=== PATIENT | male | born 2005 | race Caucasian/White ===

== ENCOUNTER 2024-01-27 04:17 | Emergency (ER) | payer OTHER, SELFPAY ==
--- NOTE | ~2024-01-27 | XR_ITS ---
XR wrist RT min 3V 01/27/2024 05:12 INDICATION: Right wrist pain. PROCEDURE: 3 views right wrist COMPARISON: No prior studies for comparison. FINDINGS: Fracture, dislocation or subluxation is not identified. The soft tissues appear within norm al limits. No foreign bodies are identified. IMPRESSION: 1: NO ACUTE BONE OR JOINT ABNORMALITY IDENTIFIED. Reviewed, dictated and finalized at location B.
--- NOTE | ~2024-01-27 | XR_ITS ---
XR tibia fibula RT 2V 01/27/2024 05:12 INDICATION: Right leg pain PROCEDURE: 2 views right tibia/fibular COMPARISON: No prior studies for comparison. FINDINGS: Fracture, dislocation or subluxation is not identified. The soft tissues appear within norm al limits. No foreign bodies are identified. IMPRESSION: 1: NO ACUTE BONE OR JOINT ABNORMALITY IDENTIFIED. Reviewed, dictated and finalized at location B.
--- NOTE | ~2024-01-27 | XR_ITS ---
XR ankle RT min 3V 01/27/2024 05:12 INDICATION: Right ankle pain PROCEDURE: 3 views right ankle COMPARISON: No prior studies for comparison. FINDINGS: Fracture, dislocation or subluxation is not identified. Ankle mortise intact. The soft tiss ues appear within normal limits. No foreign bodies are identified. IMPRESSION: 1: NO ACUTE BONE OR JOINT ABNORMALITY IDENTIFIED. Reviewed, dictated and finalized at location B.
[2024-01-27 04:21] VITALS: BP 129/80; PULSE 94; RESP 20; TEMP 36.3; O2SAT 100
[2024-01-27 04:47] VITALS: BP 119/84; PULSE 86; RESP 14; TEMP 36.6; O2SAT 100
[2024-01-27] MEDS: IBUPROFEN 600 MG TABLET PO (06:13)
[2024-01-27] MEDS: ACETAMINOPHEN 500 MG TABLET 1000 MG PO (06:14)
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
[2024-01-27 07:09] VITALS: BP 119/75; PULSE 67; RESP 18; TEMP 36.4; O2SAT 100
== END 2024-01-27 07:10 | disposition home or self-care (01) ==
PROVIDERS: Emergency Provider Student in an Organized Health Care Education/Training Program
DX: S80.11XA Contusion of right lower leg, initial encounter (principal); V40.0XXA Car driver injured in collision with pedestrian or animal in nontraffic accident, initial encounter
CPT/HCPCS: 73110; 73590; 73610; 99284; A9270

== ENCOUNTER 2025-04-01 11:54 | Emergency (ER) | payer OTHER, SELFPAY ==
[2025-04-01 12:00] VITALS: BP 123/85; PULSE 96; RESP 18; TEMP 36.6; O2SAT 100
--- NOTE | 2025-04-01 12:09 | ED_ITS ---
HPI - URI/Sore Throat General Chief Complaint: Upper Respiratory Infection Stated Complaint: Sore Throat Time Seen by Provider: 04/01/25 12:00 Source: patient and RN notes reviewed Mode of arrival: ambulatory Limitations: no limitations History of Present Illness HPI Narrative: 20-year-old male presents to the [facility] complaining of sore throat for 2 weeks. Patient reports mild congestion that is intermittent. Patient reports pain with swelling. Patient reports some body aches and chills. Has any fevers, nausea vomiting, diarrhea, difficulty clearing secretions, wheezing, difficulty breathing, dysphagia, or any other symptoms. Patient has not tried any [id number] help with symptoms. Denies any significant past medical history. Patient says symptoms are not improving. Related Data Allergies Allergy/AdvReac Type Severity Reaction Status Date / Time No Known Allergies Allergy Mild Verified 04/01/25 12:00 Review of Systems Review of Systems: CONSTITUTIONAL: Denies fever, or sweats. Positive for body aches and chills EYES: Denies visual changes, redness, or discharge. ENT: Denies rhinorrhea, congestion, or otalgia. Positive for sore throat CARDIOVASCULAR: Denies chest pain, palpitations, or edema. RESPIRATORY: Denies cough or dyspnea. GASTROINTESTINAL: Denies abdominal pain, nausea, vomiting, or diarrhea. GENITOURINARY: Denies dysuria or hematuria. SKIN: Denies rash or itching. MUSCULOSKELETAL: Denies back pain, joint pain, or myalgia. NEUROLOGIC: Denies headache, numbness, or weakness. PSYCHIATRIC: Denies anxiety or depression. All other systems reviewed are negative, except as documented in HPI. PMFSH Comments At the time of my signature, I reviewed and agree with the nursing past medical, surgical, social, and family history. There is no relevant family history pertinent to the patient complaint. Exam Narrative: GENERAL: This is a well-nourished, well-developed adult, in no apparent distress. They are non ill-appearing, nontoxic appearing. HEAD: normocephalic, atraumatic. EYES: Sclera clear/white. Conjunctiva normal. Vision is grossly intact. Extraocular movements intact EARS: External ears normal, auditory canals clear and without drainage, TMs normal without perforation. Hearing grossly intact. NOSE: External nose normal with no obvious nasal discharge, nasal turbinates without redness, no rhinorrhea. THROAT: Mucous membranes moist, posterior pharynx erythematous. Tonsils 3+ erythematous with exudate. Uvula midline. NECK: Neck supple, mild tender cervical lymphadenopathy, no masses or thyromegaly. CARDIOVASCULAR: Regular rate and rhythm without murmurs, gallops, or rubs. RESPIRATORY: Clear to auscultation. Breath sounds equal bilaterally. No wheezes, rales, or rhonchi. SKIN: warm, Dry, intact with no suspicious lesions or rash, good texture and turgor. NEURO: awake, alert, and oriented to person, place and time. There were no obvious focal neurologic abnormalities. EXTREMITIES: No joint tenderness, effusion, or edema noted. BACK: Nontender without deformity. Course Course Level of Care: Express Care Visit Vital Signs Vital signs: Vital Signs Temperature 97.9 F 04/01/25 12:00 Pulse Rate 96 04/01/25 12:00 Respiratory Rate 18 04/01/25 12:00 Blood Pressure 123/85 04/01/25 12:00 Pulse Oximetry 100 04/01/25 12:00 Temperature 97.9 F 04/01/25 12:00 Pulse Rate 96 04/01/25 12:00 Respiratory Rate 18 04/01/25 12:00 Blood Pressure 123/85 04/01/25 12:00 Pulse Oximetry 100 04/01/25 12:00 MDM MDM Narrative Medical decision making narrative: Given patient's length of symptoms will go ahead and treat him Augmentin. Appears patient has a bacterial tonsillitis. Patient denies sharing drinks or any recent intimate sexual contact. Discussed physical exam findings. Advised supportive measures and signs/symptoms to go to the ER. Pt is appropriate for outpt treatment and f/u. Differential Diagnosis Differential Diagnosis: Pharyngitis, strep throat, tonsillitis, upper respiratory infection, mono, viral illnes Critical Care Time Critical Care Time Critical Care Time: No Discharge Plan Discharge Clinical Impression: Acute bacterial tonsillitis Patient Disposition: Home Condition: Stable Instructions: Antibiotic Form, Tonsillitis (ED) Additional Instructions: Please take the Augmentin as prescribed until gone. ?You will be contagious for 24 hours after starting the medication. ?After 24 hours on antibiotics throw tooth brush away and start using a new one. Wash your sheets and cup/water amarilis ttle that is used daily. Do not share drinks. Take Tylenol or Ibuprofen as needed for pain or fever, follow instructions on the bottle. ?Rest and stay hydrated. ?Follow up with your PCP in 3 days if symptoms are not improving. ?Go to the ER immediately if you develop worsening symptoms such as shortness of breath, difficulty clearing secretions, vomiting, difficulty swallowing., breathing problems, or any serious concerns. Patient Language: [place] Prescriptions: New amoxicillin-pot clavulanate [Augmentin] 500-125 mg tablet 1 tablet PO Q12H 10 Days Qty: 20 0RF No Action ibuprofen 600 mg tablet 600 mg PO TID PRN (Reason: pain) Qty: 20 0RF methocarbamol 500 mg tablet 500 mg PO HS Qty: 7 0RF acetaminophen [Tylenol Extra Strength] 500 mg tablet 1,000 mg PO TID PRN (Reason: pain) Qty: 30 0RF Follow-up/Referrals: PHYSICIAN,PRECISION LENS GENERATOR [Primary Care Provider, Internal Medicine] Evangelista Mcbride MD [Physician, Family Practice] - 3 Days Time of Disposition: 12:14
== END 2025-04-01 12:16 | disposition home or self-care (01) ==
DX: J03.90 Acute tonsillitis, unspecified (principal)
CPT/HCPCS: 99213; G0463